=== PATIENT | male | born 1940 | race Hispanic/Latino ===

== ENCOUNTER 2022-06-07 05:32 | Emergency (ER) | payer MEDICARE ==
[~2022-06-07] VITALS: Ht 165.1 cm; Wt 60.4 kg
[2022-06-07 06:01] LABS: BASOPHILS % (AUTO) 0.5 % (0.0-5.0); EOSINOPHILS % (AUTO) 0.9 % (0.0-8.0); HEMATOCRIT 43.5 % (42-54); LYMPHOCYTES % (AUTO) 16.2 % (21.0-51.0); MEAN CORPUSCULAR HEMOGLOBIN 29.5 pg (27.0-33.0); MEAN CORPUSCULAR HGB CONC 33.8 g/dL (32.0-36.0); MEAN CORPUSCULAR VOLUME 87.2 fL (79-99); MONOCYTES % (AUTO) 3.6 % (3.0-13.0); NEUTROPHILS % (AUTO) 78.4 % (40.0-77.0); PLATELET COUNT (AUTO) 230 K/uL (130-400); RED BLOOD CELL COUNT(AUTO) 4.99 MIL/uL (4.50-6.20); RED CELL DISTRIBUTION WIDTH 13.5 % (11.0-15.5); WHITE BLOOD COUNT (AUTO) 9.1 K/uL (4.8-10.8)
[2022-06-07 06:08] VITALS: BP 163/87
[2022-06-07 06:20] LABS: POTASSIUM 3.9 mmol/L (3.5-5.1)
[2022-06-07 06:38] LABS: APPEARANCE,URINE CLEAR (CLEAR); BILIRUBIN,URINE NEGATIVE (NEGATIVE); GLUCOSE, URINE (UA) NEGATIVE (NEGATIVE); KETONES,URINE NEGATIVE (NEGATIVE); LEUKOCYTE ESTERASE ,URINE NEGATIVE Leu/uL (NEGATIVE); NITRATE,URINE NEGATIVE (NEGATIVE); OCCULT BLOOD,URINE NEGATIVE (NEGATIVE); PH,URINE 6.5 (5.0-8.0); PROTEIN,URINE NEGATIVE (NEGATIVE); UROBILINOGEN,URINE 0.2 mg/dL (0.2-1.0)
[2022-06-07 06:39] LABS: COLOR,URINE LIGHT-YELLOW (YELLOW)
== END 2022-06-07 07:05 | disposition home or self-care (01) ==
LOC: EDH 05:32
DX: R33.9 Retention of urine, unspecified (principal)
CPT/HCPCS: 36415; 51702; 80048; 81003; 85025

== ENCOUNTER 2023-02-04 14:32 | Emergency (ER) | payer MEDICARE, OTHER ==
[~2023-02-04] VITALS: Ht 167.6 cm; Wt 56.7 kg
[2023-02-04 14:35] VITALS: BP 128/80
== END 2023-02-04 19:46 | disposition home or self-care (01) ==
LOC: EDH 14:32
DX: S50.01XA Contusion of right elbow, initial encounter (principal); S60.221A Contusion of right hand, initial encounter; W18.39XA Other fall on same level, initial encounter; Y93.89 Activity, other specified; Y92.89 Other specified places as the place of occurrence of the external cause; Y99.8 Other external cause status
CPT/HCPCS: 73080; 73130

== ENCOUNTER 2025-02-13 14:51 | Inpatient (IN) | payer MEDICARE, OTHER ==
[~2025-02-13] VITALS: Ht 165.1 cm; Wt 54.7 kg
[2025-02-13 15:16] LABS: IMMATURE GRANULOCYTE ABSOLUTE 0.01 K/uL (0-1); NUCLEATED RED BLOOD CELLS 0.0 % (0.0-0.19); PLATELET COUNT (AUTO) 190 K/uL (130-400); RED BLOOD CELL COUNT(AUTO) 4.77 MIL/uL (4.50-6.20); RED CELL DISTRIBUTION WIDTH 14.0 % (11.0-15.5); WHITE BLOOD COUNT (AUTO) 6.8 K/uL (4.8-10.8)
[2025-02-13 15:25] LABS: CREATININE 0.9 mg/dL (0.5-1.3); GLOMERULAR FILTR. RATE CALC 85.0 mL/min (>90); GLUCOSE,RANDOM 142.0 mg/dL (70-105); SODIUM SERUM 140.0 mmol/L (136-145); UREA NITROGEN, BLOOD 21.0 mg/dL (7-18)
[2025-02-13 15:34] LABS: CREATINE KINASE, TOTAL 121.0 U/L (21-232)
--- NOTE | 2025-02-13 15:53 | HMCIMG ---
EXAM: CR Chest, 1 View. CLINICAL HISTORY: CHEST PAIN COMPARISON: None provided. FINDINGS: LUNGS: There is no mass, infiltrate, or acute pulmonary abnormality. PLEURAL SPACES: No pleural effusion or pneumothorax. MEDIASTINUM: The cardiomediastinal silhouette is within normal limits. BONES: No acute osseous abnormality. IMPRESSION: No acute cardiopulmonary pathology is evident. /[place]
--- NOTE | 2025-02-13 16:46 | ERN ---
General Chief Complaint: Chest Pain Stated Complaint: CHEST PAIN Time Seen by MD: 15:45 History of Present Illness Initial Comments 84-year-old male came in for chest pain. Patient otherwise has no concerns. Allergies: Coded Allergies: No Known Drug Allergies (Unverified Allergy, Unknown, 06/07/22) Past Medical History Past Medical History: UTI, Other Medical History Other: BPH Past Surgical History: None Social History Social History: Other ROS Dictation CONSTITUTIONAL: No chills, no fever, no weakness, no diaphoresis, no malaise. HEAD/FACE: No signs of trauma. EENT: No eye pain, no blurred vision, no tearing, no double vision, no ear pain, no ear discharge, no nose pain, no nasal congestion, no throat pain, no throat swelling, no mouth pain. RESPIRATORY: No cough, no orthopnea, no SOB, no stridor, no wheezing. CARDIOVASCULAR: No chest pain, no edema, no palpitations, no syncope. GASTROINTESTINAL/ABDOMINAL: No abdominal pain, no constipation, no diarrhea, no nausea, no vomiting. GENITOURINARY: No abnormal discharge, no dysuria, no frequent urination, no hematuria. No complaints of pain in the genitals. MUSCULOSKELETAL: No back pain, no gout, no joint pain, no joint swelling, no muscle pain, no muscle stiffness, no neck pain. INTEGUMENTARY: No change in color, no change in hair/nails, no dryness, no lesion, no lumps, no rash. NEUROLOGICAL/PSYCH: No anxiety, not depressed, no emotional problem, no headache, no numbness, no pre-existing deficit, no history of seizures, no t remors, no weakness. HEMATOLOGIC/LYMPHATIC: Not anemic, no history of blood clots, no apparent bleeding, no bruising, glands not swollen. All Systems Negative, Except as Noted. Physical Exam Physical Exam Dictation VITAL SIGNS: Reviewed. GENERAL APPEARANCE: Alert, oriented x3, no acute distress, obese. HEAD AND FACE: Non-traumatic. EYES: PERRL, pink conjunctivas, eyelid no trauma, anterior chamber clear. EARS: Pinnas intact and no signs of trauma or erythema. Ear canals clear and no discharge. TMs no erythema. NOSE: No discharge, no bleeding. OROPHARYNX: Mouth normal, teeth no caries, tongue pink. Pharynx clear, no erythema. Tonsils no exudates, no abscesses noted. Mucous membrane moist. NECK: Supple, non-tender, no thyromegaly, no masses, no JVD, no bruits. BREAST: Deferred. CHEST: No tenderness, no crepitus, no paradoxical movement, no retractions. LUNGS: Clear, well-ventilated, symmetric, no rales, no wheezing, no rhonchi, no stridor, good breath sounds bilaterally. HEART: Regular rate, regular rhythm, no murmur, no gallops. VASCULAR: No peripheral edema. ABDOMEN: Soft, positive bowel sounds, nondistended, no guarding, nontender, no rebound, no masses no hepatomegaly, no splenomegaly, no Mcarthur's sign, no hernias. RECTAL: Deferred. GENITAL: Deferred. NEUROLOGICAL: Normal speech, gross motor function intact, gross sensory function intact. MUSCULOSKELETAL: Neck nontender, full range of motion, back nontender, full range of motion. EXTREMITIES: Nontender, full range of motion. SKIN: Color pink, dry, no turgor, no rash, no lacerations, no abrasions, no contusions. LYMPHATICS: Deferred. Results Laboratory and Microbiology Lab and Micro Result Laboratory Tests Test 02/13/25 15:09 White Blood Count 6.8 K/uL (4.8-10.8) Red Blood Count 4.77 MIL/uL (4.50-6.20) Hemoglobin 13.9 g/dL (14.0-18.0) L Hematocrit 42.3 % (42-54) Mean Corpuscular Volume 88.7 fL (79-99) Mean Corpuscular Hemoglobin 29.1 pg (27.0-33.0) Mean Corpuscular Hemoglobin Concent 32.9 g/dL (32.0-36.0) Red Cell Distribution Width 14.0 % (11.0-15.5) Platelet Count 190 K/uL (130-400) Mean Platelet Volume 9.7 fL (7.5-10.5) Immature Granulocyte % (Auto) 0.1 % (0-1) Neutrophils (%) (Auto) 66.5 % (40.0-77.0) Lymphocytes (%) (Auto) 23.7 % (21.0-51.0) Monocytes (%) (Auto) 4.4 % (3.0-13.0) Eosinophils (%) (Auto) 5.2 % (0.0-8.0) Basophils (%) (Auto) 0.1 % (0.0-5.0) Neutrophils # (Auto) 4.5 K/uL (1.8-7.7) Lymphocytes # (Auto) 1.6 K/uL (1.0-4.8) Monocytes # (Auto) 0.3 K/uL (0.1-1.0) Eosinophils # (Auto) 0.35 K/uL (0.00-0.70) Basophils # (Auto) 0.01 K/uL (0.00-0.20) Absolute Immature Granulocyte (auto 0.01 K/uL (0-1) Nucleated Red Blood Cells 0.0 % (0.0-0.19) Sodium Level 140 mmol/L (136-145) Potassium Level 3.7 mmol/L (3.5-5.1) Chloride Level 105 mmol/L (101-111) Carbon Dioxide Level 26 mmol/L (21-32) Blood Urea Nitrogen 21 mg/dL (7-18) H Creatinine 0.9 mg/dL (0.5-1.3) Glomerular Filtration Rate Calc 85 mL/min (>90) Random Glucose 142 mg/dL (70-105) H Total Calcium 8.9 mg/dL (8.5-10.1) Total Creatine Kinase 121 U/L (21-232) Troponin I High Sensitivity 4 ng/L (4-75) MDM MDM: Differential diagnosis: Rationale: Tests considered and ordered secondary to shared decision making include: labs, ECG and radiology Previous outside records reviewed: Old ER visits. Risk of complication and/or morbidity or mortality of patient management: None Medications-Per medication reconciliation Need for hospitalization: Patient does meet criteria for hospitalization. Need for emergency major/minor surgery: No There are no social concerns with this patient. Prescription drug management Prescriptions will include symptomatic care Patient's prior external medical records from other ER visits were reviewed by me as indicated. Prior testing and results from previous visits were reviewed. Prior tests were taken into account with medical decision making and resource utilization, independent historian/historians were used to obtain complete medical history. I independently interpreted the test that were performed, results were reviewed by me and considered findings on radiology if ordered. Medical management and examination interpretation discussions were had by me with other qualified healthcare professionals as indicated for the patient's care. ED Course Orders Procedure Category Date Status Time Vital Signs Per CPOE 02/13/25 Transmitted Routine 15:02 Chest 1vw RAD 02/13/25 Resulted 15:02 12 Lead Ekg Tracing- EKG 02/13/25 Logged Technical 15:02 Oxygen By Nc/Pulse Ox CPOE 02/13/25 Transmitted 15:02 Maintain Iv CPOE 02/13/25 Transmitted 15:02 Iv Insertion CPOE 02/13/25 Transmitted 15:02 Cardiac Monitoring CPOE 02/13/25 Transmitted 15:02 Pulse Oximetry With CPOE 02/13/25 Transmitted Vs And Prn 15:02 Cbc With Differential LAB 02/13/25 Complete 15:02 Activity: Br W/Brp CPOE 02/13/25 Transmitted With Assist 15:02 Creatine Kinase, Total LAB 02/13/25 Complete 15:02 Troponin I High LAB 02/13/25 Complete Sensitivity 15:02 Urinalysis Profile LAB 02/13/25 Logged 15:02 Basic Metabolic Panel LAB 02/13/25 Complete 15:02 Vital Signs Date Time Temp Pulse Resp B/P (MAP) Pulse Ox O2 Delivery O2 Flow Rate FiO2 02/13/25 16:22 99.0 71 18 156/69 95 Room Air* 0 21 02/13/25 15:00 97.5 81 16 135/68 95 Room Air 0 DX & DISP Disposition: Inpatient Departure Impression: Primary Impression: Chest pain Condition: Stable Referrals: SELF,REFERRAL (PCP) ELLI HUMPHREY MD Feb 13, 2025 16:46
--- NOTE | 2025-02-13 16:55 | EKG ---
[facility] Test Date: 2025-02-13 Test Time: 14:55:27 Pat Name: PETER HWANG Department: ED Room: 303 Gender: M Ecdis N Navigation Operator: [id number] : 1940 Requested By: ELLI HUMPHREY Order Number: [id number] Reading MD: Rogelio Jaquez Measurements Intervals [place] Rate: 75 P: 51 TN: 228 QRS: 25 QRSD: 102 T: 69 QT: 403 QTc: 451 Interpretive Statements Sinus rhythm Prolonged TN interval Anterolateral infarct, age indeterminate Abnormal T, probable ischemia, lateral leads No previous ECG available for comparison Electronically Signed On 02-14-2025 15:35:05 CDT by Rogelio Jaquez Please click the below link to view image of tracing.
[2025-02-13] MEDS ORDERED: PoTASSium chloRIDE 20MEQ ER 20 MEQ ERTAB PO PRN (17:00)
[2025-02-13] MEDS ORDERED: NITROGLYCERIN 0.4 MG SL TAB SL PRN (17:00)
[2025-02-13] MEDS ORDERED: MAGNESIUM 2GM PREMIX 50ML 50 ML IV PRN (17:00)
--- NOTE | 2025-02-13 17:20 | HP ---
[facility] HISTORY AND PHYSICAL Date of Service: Feb 13, 2025 Time of Service: 16:40 HISTORY OF PRESENT ILLNESS: [ ] admission date: 02/13/25 PCP: self referral chief complaint: chest pain Primary Repairer Cylinder Heads: DR Resendiz This is a 84year old male presents in ER with chief complaints of chest pain. Onset today after lunch. Location midsternal described as pressure. Pain did not radiate. State 8/10 . Duration lasted for a few hours. Associated symptoms none denies GI symptoms, dizziness, palpitation, shortness for breath, no reports of lower extremity edema. Patient is has a history of dementia spouse at bedside. She said he was also working in the garage doing very minimal exertion. Patient reports no chest pain events the past few days. Patient has a significant medical history of BPH and dementia. ER workup troponin was negative. Given that patient has dull chest pain with minimal exertion patient will be admitted rule out ACS. REVIEW OF SYSTEMS A14 point ROS was obtained all relevant positive documented otherwise ROS negative PAST MEDICAL HISTORY: [ ] Refer to HPI PAST SURGICAL HISTORY: [ ] None PAST SOCIAL HISTORY: [ ] Denies smoking tobacco products and alcohol use lives with spouse FAMILY HISTORY: [ ] Noncontributory Coded Allergies: No Known Drug Allergies (Unverified Allergy, Unknown, 06/07/22) PHYSICAL EXAM GENERAL APPEARANCE: The patient is awake, alert, and oriented, in no acute cardiopulmonary distress. NEUROLOGICAL: Cranial nerves II-XII grossly intact. Motor is 5/5 in bilateral upper and lower extremities proximal to distal. No sensory deficits. HEENT: Face is symmetric. Pupils are equal and reactive. Extraocular movements are intact. NECK: Supple. No JVD. No thyromegaly. No submental, submandibular, pre- /postauricular, occipital or supraclavicular lymphadenopathy. CHEST: Normal chest expansion. No Telemetry. LUNGS: Absence of any rales, rhonchi or any wheezing. CARDIOVASCULAR: Regular. S1 and S2 normal. No appreciable rubs, murmurs or gallops. ABDOMEN: Soft, nontender, and nondistended. There is no rebound, voluntary guarding, or rigidity. : Deferred. No Henry. EXTREMITIES: Non-edematous and not cyanotic. No clubbing. Good capillary refill. SKIN: No skin breakdown. Vital Sign (Last 24 Hours) 02/13/25 16:22 Temp 99.0 Pulse 71 Resp 18 B/P (MAP) 156/69 Pulse Ox 95 O2 Delivery Room Air* O2 Flow Rate 0 FiO2 21 LABS: Laboratory: Test 02/13/25 15:09 Range/Units White Blood Count 6.8 4.8-10.8 K/uL Red Blood Count 4.77 4.50-6.20 MIL/uL Hemoglobin 13.9 L 14.0-18.0 g/dL Hematocrit 42.3 42-54 % Mean Corpuscular Volume 88.7 79-99 fL Mean Corpuscular Hemoglobin 29.1 27.0-33.0 pg Mean Corpuscular Hemoglobin Concent 32.9 32.0-36.0 g/dL Red Cell Distribution Width 14.0 11.0-15.5 % Platelet Count 190 130-400 K/uL Mean Platelet Volume 9.7 7.5-10.5 fL Immature Granulocyte % (Auto) 0.1 0-1 % Neutrophils (%) (Auto) 66.5 40.0-77.0 % Lymphocytes (%) (Auto) 23.7 21.0-51.0 % Monocytes (%) (Auto) 4.4 3.0-13.0 % Eosinophils (%) (Auto) 5.2 0.0-8.0 % Basophils (%) (Auto) 0.1 0.0-5.0 % Neutrophils # (Auto) 4.5 1.8-7.7 K/uL Lymphocytes # (Auto) 1.6 1.0-4.8 K/uL Monocytes # (Auto) 0.3 0.1-1.0 K/uL Eosinophils # (Auto) 0.35 0.00-0.70 K/uL Basophils # (Auto) 0.01 0.00-0.20 K/uL Absolute Immature Granulocyte (auto 0.01 0-1 K/uL Nucleated Red Blood Cells 0.0 0.0-0.19 % Sodium Level 140 136-145 mmol/L Potassium Level 3.7 3.5-5.1 mmol/L Chloride Level 105 101-111 mmol/L Carbon Dioxide Level 26 21-32 mmol/L Blood Urea Nitrogen 21 H 7-18 mg/dL Creatinine 0.9 0.5-1.3 mg/dL Glomerular Filtration Rate Calc 85 >90 mL/min Random Glucose 142 H 70-105 mg/dL Total Calcium 8.9 8.5-10.1 mg/dL Total Creatine Kinase 121 21-232 U/L Troponin I High Sensitivity 4 4-75 ng/L DIAGNOSTICS / RADIOLOGY: [ ] ASSESSMENT: Atypical chest pain rule out ACS hyperglycemia POA Chronic problems BPH and dementia PLAN: [ ] Admit: Medical-surgical with tele condition: Guarded Status: Full code IVF: Consultants continuous improvement coordinator's medications Full dose aspirin now then 81 mg po daily, atorvastatin 20 mg po hs Nitroglycerin 0.4 Sublingual as directed for chest pain Test: Echo to evaluate LV function Labs cbc, cmp, mag+ tsh, lipid panel Replace electrolytes as needed as per protocol to keep potassium above 4.0 magnesium 2.0. Home medications pending to be reviewed by RN nurse. PRN: MEDICATIONS Tylenol 650 mg po every 4 hrs for fever zofran 4 mg IV every 6 hrs for n/v Hydralazine 5 mg IV every 4 hrs systolic pressure > 160 bowel regiment: lactulose 20 gm PO BID PRN constipation DVT ppx, GI ppx all questions answered time spent: > 35 min Supervising MD: Dr. Edmondson c/d This document was generated in part using voice recognition software, occasional wrong word or sound alike substitutions may have occurred due to the inherent limitations of voice recognition software. Read the chart carefully and recognize using context, where the substitutions have occurred. Although every effort was made to edit the content, game advisor and typing errors may occur ADVANCED CARE PLANNING 1. Which of the following were discussed? Hospice Care - Yes / No Therapeutic options - Yes / No Advance Directives - Yes / No Other discussions - 2. Discussed with who? 3. Voluntary nature of this service was explained to the patient? Yes / No 4. Amount of time spent - 5. Reviewed by Physician? (if this service was performed by NPP) Yes / No ATTESTATION BY PHYSICIAN I have seen and examined the patient. I reviewed the documentation, medical decision making, and treatment plan as noted by the mid-level provider above. I agree with the findings and plan of care. ELMER EDMONDSON MD, ELIZABETH NP Feb 13, 2025 17:20
--- NOTE | 2025-02-13 17:50 | NUR ---
DR CARLSON PAGED FOR CARDIO CONSULT. WILL BE SEEING PT IN AM.
[2025-02-13] MEDS: ASPIRIN 325MG TAB PO ONE (18:12)
[2025-02-13 20:41] LABS: APPEARANCE,URINE CLEAR (CLEAR); GLUCOSE, URINE (UA) NEGATIVE (NEGATIVE); LEUKOCYTE ESTERASE ,URINE NEGATIVE Leu/uL (NEGATIVE); NITRATE,URINE NEGATIVE (NEGATIVE); OCCULT BLOOD,URINE NEGATIVE (NEGATIVE)
[2025-02-13 20:42] LABS: ADD UA MICROSCOPIC YES
--- NOTE | 2025-02-14 00:25 | NUR ---
REPORT GIVEN TO CANDICE FOURNIER.
[2025-02-14 01:10] VITALS: BP 166/85; PULSE 62; RESP 18; TEMP 97.5
[2025-02-14 04:00] VITALS: BP 132/52; PULSE 59; RESP 18; TEMP 97.9
[2025-02-14] MEDS ORDERED: DONE5TAB33 PO (04:25)
[2025-02-14] MEDS ORDERED: ATOR20TA65 PO (04:25)
[2025-02-14] MEDS ORDERED: TAMS-55 PO (04:25)
[2025-02-14 04:29] LABS: IMMATURE GRANULOCYTE ABSOLUTE 0.01 K/uL (0-1); NUCLEATED RED BLOOD CELLS 0.0 % (0.0-0.19); PLATELET COUNT (AUTO) 176 K/uL (130-400); RED BLOOD CELL COUNT(AUTO) 4.53 MIL/uL (4.50-6.20); RED CELL DISTRIBUTION WIDTH 13.8 % (11.0-15.5); WHITE BLOOD COUNT (AUTO) 5.1 K/uL (4.8-10.8)
[2025-02-14 04:52] LABS: ASPARTATE AMINOTRANSFERASE 37.0 U/L (10-37); CREATININE 0.6 mg/dL (0.5-1.3); GLOMERULAR FILTR. RATE CALC 96.0 mL/min (>90); GLUCOSE,RANDOM 92.0 mg/dL (70-105); SODIUM SERUM 142.0 mmol/L (136-145); TOTAL PROTEIN, SERUM 6.7 g/dL (6.0-8.3); UREA NITROGEN, BLOOD 21.0 mg/dL (7-18)
[2025-02-14 08:00] VITALS: BP 131/70; PULSE 67; RESP 17; TEMP 98.9; O2SAT 91
[2025-02-14 08:29] LABS: LDL DIRECT 118 mg/dL (0-99)
[2025-02-14] MEDS: ASPIRIN 81 MG EC TAB PO SCH (08:41)
[2025-02-14] MEDS: PoTASSium chl 10% ELIXIR 20MEQ 20 MEQ/15 ML UDCUP PO PRN (08:47)
--- NOTE | 2025-02-14 09:25 | NUR ---
DCP: HOME Pt lives with his Deborah Prieto [phone]. Pt does not have any insecurities with food, assisted, and/or utilities. Pt does use a cane at home to ambulate. Pt does not have provider or home health services. Pt is able to complete ADLs independently. Pt has a PCP of Dr. Borrero and Dr. Whitfield at the [facility]. Pt uses [facility] in [place] for any RX needs. At [place] pt will go home and family can assist with transportation. Addendum: 02/14/25 at 0928 by DELIA COLÓN SS Amended: Links added.
--- NOTE | 2025-02-14 10:22 | PN ---
[facility] PROGRESS NOTE Date of Service: Feb 14, 2025 Time of Service: 10:22 SUBJECTIVE: 02/14/2025: The patient was evaluated at the bedside in the presence of his . He appeared comfortable and reported no current chest pain or shortness of breath. His provided additional history, noting that he may be a poor historian and was unable to fully describe his symptoms. Per collateral history, symptoms began yesterday after lunch, when the patient describes the sensation as if he "did not have a heart" accompanied by discomfort on the left side of the chest. The duration of pain is unknown, however he had no chest pain in the emergency department. The was concerned given his age, she decided to go to ER for further evaluation. He denies any history of coronary artery disease, myocardial infarction, or cerebrovascular events. At present, he remains asymptomatic, without dyspnea, chest pain, or peripheral edema. He is currently hemodynamically stable, blood pressure 132/52, pulse rates 59 and breathing on room air. Serial troponin have been negative CBC and BMP are unremarkable. D-dimer is elevated to 780. Echocardiogram is pending. Plan is to obtain CT chest to rule out PE. Cardiology consult is pending. Further assessment and plan as discussed below. REVIEW OF SYSTEMS A14 point ROS was obtained all relevant positive documented otherwise ROS negative PHYSICAL EXAM GENERAL APPEARANCE: The patient is awake, alert, and oriented, in no acute cardiopulmonary distress. NEUROLOGICAL: Cranial nerves II-XII grossly intact. Motor is 5/5 in bilateral upper and lower extremities proximal to distal. No sensory deficits. HEENT: Face is symmetric. Pupils are equal and reactive. Extraocular movements are intact. NECK: Supple. No JVD. No thyromegaly. No submental, submandibular, pre-/postau ricular, occipital or supraclavicular lymphadenopathy. CHEST: Normal chest expansion. No Telemetry. LUNGS: Absence of any rales, rhonchi or any wheezing. CARDIOVASCULAR: Regular. S1 and S2 normal. No appreciable rubs, murmurs or gallops. ABDOMEN: Soft, nontender, and nondistended. There is no rebound, voluntary guarding, or rigidity. : Deferred. No Henry. EXTREMITIES: Non-edematous and not cyanotic. No clubbing. Good capillary refill. SKIN: No skin breakdown. Vital Signs (last 8hr) Date Time Temp Pulse Resp B/P (MAP) Pulse Ox O2 Delivery O2 Flow Rate FiO2 02/14/25 08:00 99.0 67 17 131/70 91 Room Air 02/14/25 04:00 97.9 59 18 132/52 96 Room Air LABS: Laboratory: Test 02/14/25 09:09 02/14/25 05:28 02/14/25 04:20 02/13/25 20:32 Range/Units D-Dimer Quantitative (PE/DVT) 708 *H 0-500 ng/mL Whole Blood Glucose 88 70-110 MG/DL White Blood Count 5.1 4.8-10.8 K/uL Red Blood Count 4.53 4.50-6.20 MIL/uL Hemoglobin 13.4 L 14.0-18.0 g/dL Hematocrit 40.1 L 42-54 % Mean Corpuscular Volume 88.5 79-99 fL Mean Corpuscular Hemoglobin 29.6 27.0-33.0 pg Mean Corpuscular Hemoglobin Concent 33.4 32.0-36.0 g/dL Red Cell Distribution Width 13.8 11.0-15.5 % Platelet Count 176 130-400 K/uL Mean Platelet Volume 9.5 7.5-10.5 fL Immature Granulocyte % (Auto) 0.2 0-1 % Neutrophils (%) (Auto) 56.3 40.0-77.0 % Lymphocytes (%) (Auto) 31.1 21.0-51.0 % Monocytes (%) (Auto) 6.5 3.0-13.0 % Eosinophils (%) (Auto) 5.7 0.0-8.0 % Basophils (%) (Auto) 0.2 0.0-5.0 % Neutrophils # (Auto) 2.9 1.8-7.7 K/uL Lymphocytes # (Auto) 1.6 1.0-4.8 K/uL Monocytes # (Auto) 0.3 0.1-1.0 K/uL Eosinophils # (Auto) 0.29 0.00-0.70 K/uL Basophils # (Auto) 0.01 0.00-0.20 K/uL Absolute Immature Granulocyte (auto 0.01 0-1 K/uL Nucleated Red Blood Cells 0.0 0.0-0.19 % Sodium Level 142 136-145 mmol/L Potassium Level 3.7 3.5-5.1 mmol/L Chloride Level 108 101-111 mmol/L Carbon Dioxide Level 24 21-32 mmol/L Blood Urea Nitrogen 21 H 7-18 mg/dL Creatinine 0.6 0.5-1.3 mg/dL Glomerular Filtration Rate Calc 96 >90 mL/min Random Glucose 92 70-105 mg/dL Total Calcium 8.8 8.5-10.1 mg/dL Magnesium Level 2.20 1.80-2.40 mg/dL Total Bilirubin 0.4 0.2-1.0 mg/dL Aspartate Amino Transf (AST/SGOT) 37 10-37 U/L Alanine Aminotransferase (ALT/SGPT) 50 12-78 U/L Alkaline Phosphatase 88 50-136 U/L Troponin I High Sensitivity 7 4-75 ng/L Total Protein 6.7 6.0-8.3 g/dL Albumin 3.4 L 3.5-5.0 g/dL Triglycerides Level 61 30-200 mg/dL Cholesterol Level 187 <200 mg/dL LDL Cholesterol 118 H 0-99 mg/dL HDL Cholesterol 52 29-71 mg/dL Urine Color COLORLESS YELLOW Urine Appearance CLEAR CLEAR Urine pH 6.5 5.0-8.0 Urine Specific [place] 1.000 1.001-1.031 Urine Protein NEGATIVE NEGATIVE mg/dL Urine Glucose (UA) NEGATIVE NEGATIVE mg/dL Urine Ketones NEGATIVE NEGATIVE mg/dL Urine Occult Blood NEGATIVE NEGATIVE Urine Nitrate NEGATIVE NEGATIVE Urine Bilirubin NEGATIVE NEGATIVE mg/dL Urine Urobilinogen 0.2 0.2-1.0 mg/dL Urine Leukocyte Esterase NEGATIVE NEGATIVE Yanni/uL Urine RBC 0-1 0-1 /HPF Urine WBC 0-1 0-1 /HPF Urine Bacteria None None Seen /HPF Test 02/13/25 15:09 Range/Units Total Creatine Kinase 121 21-232 U/L B-Type Natriuretic Peptide 36 0-100 pg/mL Current Medications Medications (Trade) Dose Ordered Sig/Osman Route PRN Reason Start Time Stop Time Status Last Admin Dose Admin Acetaminophen (TYLenol 325MG TAB) 650 mg Q4H PRN PO TEMPERATURE GREATER THAN 101.5 02/13/25 17:00 03/15/25 16:59 Aspirin (Aspirin 81mg Ec Tab) 81 mg DAILY PO 02/14/25 09:00 03/16/25 08:59 02/14/25 08:41 81 MG Atorvastatin Calcium (LIPItor 20MG) 20 mg HS PO 02/13/25 21:00 03/15/25 20:59 02/13/25 20:53 20 MG Donepezil HCl (ARIcept 5MG TAB) 5 mg DAILY PO 02/14/25 09:00 03/16/25 08:59 02/14/25 08:41 5 MG Hydralazine HCl (APRESOLine 20MG INJ) 5 mg Q4H PRN IV ADMINISTER FOR SBP > 160 02/13/25 17:00 03/15/25 16:59 Insulin Human Regular (humuLIN R 100 UNIT/ML 3ML) INSULIN SLIDING SCAL... ACHS SQ 02/13/25 21:00 03/15/25 20:59 Magnesium Sulfate 50 ml @ 0 mls/hr PROTOCOL PRN IV low mag level 02/13/25 17:00 03/15/25 16:59 Nitroglycerin (Nitrostat) 0.4 mg AD PRN SL CHEST PAIN 02/13/25 17:00 03/15/25 16:59 Pantoprazole Sodium (PROTonix 40MG INJ) 40 mg DAILY IVP 02/14/25 09:00 03/16/25 08:59 02/14/25 08:41 40 MG Potassium Chloride 100 ml @ 100 mls/hr AD PRN IV POTASSIUM PROTOCOL 02/13/25 17:00 03/15/25 16:59 Potassium Chloride (K-Dur/Klor-Con 20meq) 20 meq AD PRN PO POTASSIUM PROTOCOL 02/13/25 17:00 03/15/25 16:59 Potassium Chloride (KCl 10% Elixir 20meq/15ml) 20 meq AD PRN PO POTASSIUM PROTOCOL 02/13/25 17:00 03/15/25 16:59 02/14/25 08:47 20 MEQ Tamsulosin HCl (FloMAX) 0.4 mg HS PO 02/13/25 21:00 03/15/25 20:59 02/13/25 20:53 0.4 MG DIAGNOSTICS / RADIOLOGY: [place] [id number] [address] IMAGING REPORT Signed PATIENT: PETER HWANG MR#: [id number] : 1940 SEX: M AGE: 84 LOCATION: [facility] ORDER 02 STATUS: REG ER REPORT#: [id number] SERVICE 01 REASON: CHEST PAIN ORDERING PHYSICIAN: ELLI HUMPHREY MD PROCEDURE: CXR1VW - CHEST 1VW EXAM: CR Chest, 1 View. CLINICAL HISTORY: CHEST PAIN COMPARISON: None provided. FINDINGS: LUNGS: There is no mass, infiltrate, or acute pulmonary abnormality. PLEURAL SPACES: No pleural effusion or pneumothorax. MEDIASTINUM: The cardiomediastinal silhouette is within normal limits. BONES: No acute osseous abnormality. IMPRESSION: No acute cardiopulmonary pathology is evident. /Tate DICTATED BY: SULLY PEÑA MD DATE: 02/13/251650 ELECTRONICALLY SIGNED BY: SULLY PEÑA MD DATE: 02/13/251650 ASSESSMENT: Atypical chest pain rule out ACS Elevated D-dimer, CT PE pending hyperglycemia POA Hypoalbuminemia POA Benign prostatic hyperplasia Dementia PLAN: The patient remains admitted on the medical surgical floor. Atypical chest pain rule out ACS * The patient is currently pain-free, serial troponin are negative 4-5-7 * Echocardiogram is pending, follow up when the results are available. * Continue with aspirin 81 mg. * Continue with the atorvastatin 20 mg daily. * Continue with 0.4 mg nitroglycerin as needed for chest pain. * Lipid panel: Triglycerides 61, cholesterol 187, LDL 118, HDL 52 * Cardiology consult is pending. Follow up with the recommendations are available. Elevated D-dimer, CT PE pending * D-dimer level is 780. Pretest probability of PE is very low with Wells score 0. * We will order CT PE per protocol given elevated D-dimer to rule out PE. Hyperglycemia POA * No known history of diabetes. Recent blood sugar level is 88. * Continue on sliding scale insulin. * Hypoglycemia protocol DVT prophylaxis: Heparin 5000 IU q.12h. GI prophylaxis: Famotidine 20 mg p.o. q.12h Replace electrolytes as needed. Discontinue p.r.n. IV antihypertensives. Home medications were reconciled and continued. P.r.n. medication for fever, nausea, constipation Replace electrolytes as needed as per protocol to keep potassium above 4.0 magnesium 2.0. A.m. labs: CBC, BMP Further orders per hospitalization course. ATTESTATION BY PHYSICIAN I have seen and examined the patient. I reviewed the documentation, medical decision making, and treatment plan as noted by the resident provider above. I agree with the findings and plan of care. Reginaldo Marin MD, MANALI MD Feb 14, 2025 10:22
[2025-02-14 12:00] VITALS: BP 111/52; PULSE 62; RESP 17; TEMP 97.5
[2025-02-14] MEDS ORDERED: IOHEXOL-350 75 ML VIAL IV ONE (13:32)
[2025-02-14] MEDS ORDERED: GLUCAGON 1MG KIT 1 MG ML IM PRN (14:00)
[2025-02-14] MEDS ORDERED: DEXTROSE 50%-WATER 50 ML DISP.SYRIN IV PRN (14:00)
[2025-02-14] MEDS ORDERED: LACTULOSE 20 GM/30 ML UDCUP PO PRN (14:00)
--- NOTE | 2025-02-14 15:03 | HMCIMG ---
EXAM: CTA Chest with and without Intravenous Contrast for PE evaluation CLINICAL HISTORY: Elevated D-dimer, r/o PE TECHNIQUE: Axial CTA images of the chest with and without intravenous contrast using a pulmonary embolism protocol. Multiplanar reconstructed images were created and reviewed. CONTRAST: IV contrast was administered without incident. COMPARISON: None provided. FINDINGS: PULMONARY ARTERIES: Opacified pulmonary arteries are patent without evidence for pulmonary embolism. AORTA: There is no evidence for aneurysm or dissection of the thoracic aorta. LUNGS: Fibroatelectatic bands noted involving bilateral lower lobe. No suspicious pulmonary nodule or focal airspace disease. PLEURAL SPACES: Pleural plaque noted involving lateral basal segment of the right lower lobe and posterobasal segment of the left lower lobe. No pneumothorax evident. No pleural effusions. HEART: Normal heart size. No significant pericardial effusion. LYMPH NODES: No lymphadenopathy is evident. BONES: Moderate degenerative changes noted in the form of marginal osteophytes. Excessive thoracic kyphosis is noted No focal osseous abnormality or acute fracture. UPPER ABDOMEN: Approximately 12 x 10 mm left hepatic lobe cyst. Rest of the Images of the upper abdomen are unremarkable. IMPRESSION: 1. No evidence of pulmonary embolism or other acute cardiopulmonary findings. 2. Bilateral pleural plaques. /[place]
--- NOTE | 2025-02-14 15:19 | HMCSR ---
APPROVED REPORT EXAM: Two-dimensional and M-mode echocardiogram with Doppler and color Doppler. INDICATION ICD: Chest Pain 2D Dimensions RVDd4.3 cmLVEF(%)67.6 (>50%)LVED Vol(simp.)103.0 mL IVSd1.1 (0.7-1.1cm)FS(%)37 %LVES Vol(simp.)49.0 mL LVDd4.2 (3.8-5.6cm)LA (2D)3.5 (1.6-4.0cm)LVEF(%, simp.)53 % PWd0.9 (0.7-1.1cm)Ao Root(2D)3.6 (2.0-3.7cm)LA ESV INDEX (BP)26.91 mL/m2 LVDs2.6 (2.5-4.0cm)LVOT diam2.2 (1.8-2.4cm) IVC diam2.1 cm Deformation Strain Apical 4-17.2 % Apical 2-18.5 % Apical 3-15.8 % Global Strain-17.2 % M-Mode Dimensions EPSS0.8 cm LA (MM)5.2 (1.6-4.0cm) Ao Root(MM)2.6 (2.0-3.7cm) Aortic Valve AoV Vmax1.4 m/Alberto Peak GR7.6 mmHg AoV VTI0.3 mAo Mean GR3.5 mmHg Al P1/2T533 ms Mitral Valve MV E Vmax65.2 cm/sDECEL Rcuz332 ms MV A Vmax93.1 cm/sP 1/2 T58 ms E/A ratio0.7MVA (PHT)3.8 cm2 TDI E/E' Nogkjm83.5E/E' Lateral7.9 Medial E' Peak V4.51 cm/sLateral E' Peak V8.30 cm/s Tricuspid Valve TR Vmax1.9 m/sRAP (EST) 8 gnKfZHKB12.2 mmHg TR Peak GR15.2 mmHg Left Ventricle The left ventricle is normal size. GLS -17.0%. There is normal left ventricular wall thickness. The L VEF is 65%. 3D volume EF 59%. Stage I diastolic dysfunction. Right Ventricle The right ventricle is mildly dilated. The right ventricular systolic function is normal. Atria The left atrium size is normal. The right atrium size is normal. Aortic Valve There is aortic annular calcification. Mild aortic regurgitation is present. There is no aortic valvu lar stenosis. Mitral Valve There is mitral annular calcification. The mitral valve is mildly thickened. There is no mitral valve regurgitation noted. There is no mitral valve stenosis. Tricuspid Valve The tricuspid valve is normal in structure. There is mild tricuspid valve regurgitation noted. Pulmonic Valve The pulmonary valve is normal in structure. There is no pulmonic valvular regurgitation. Great Vessels The aortic root is normal in size. The IVC is normal in size and collapses <50% with inspiration. Pericardium There is no pericardial effusion. Other Information Quality : Adequate Conclusion The LVEF is 65%. 3D volume EF 59%. Stage I diastolic dysfunction. GLS -17.0%. Mild aortic regurgitation is present.
[2025-02-14 16:00] VITALS: BP 146/75; PULSE 60; RESP 17; TEMP 97.8
[2025-02-14] MEDS ORDERED: FAMOTIDINE 20MG VIAL IV SCH (21:00)
[2025-02-14] MEDS ORDERED: FAMOTIDINE 20MG TAB PO SCH (21:00)
--- NOTE | 2025-02-14 21:04 | DS ---
Discharge Summary Hospital Course Summary: The patient is an 84-year-old male who was admitted for evaluation of midsternal chest pain following lunch, rated 8/10 in intensity and lasting several hours on 02/13. Due to limited history provided by the patient, his served as the primary historian. He denied associated gastrointestinal symptoms, palpitations, dyspnea, or prior cardiovascular events. Initial emergency department workup, including serial troponins, was negative. He was admitted for further evaluation to rule out acute coronary syndrome (ACS). On the following day, he was assessed by the primary hospitalist team and found to be hemodynamically stable. A transthoracic echocardiogram was ordered along with a cardiology consultation. Given a D-dimer of 780, a CT pulmonary angiogram (PE protocol) was performed, which ruled out pulmonary embolism. The scan was notable for bilateral pleural plaques and a left hepatic lobe cyst, but no acute intrathoracic pathology. Echocardiogram findings revealed a left ventricular ejection fraction of 65%, stage I diastolic dysfunction, and mild aortic regurgitation. The cardiology consultation was still pending at the time. Later in the day, around 5:00 p.m., the patients reported that he was exhibiting signs of sundowning and expressed a strong preference to return home. After discussion of the potential risks, the patient elected to leave the hospital against medical advice (AMA) and signed the appropriate documentation on 02/14. The risks, benefits, and potential consequences of leaving the hospital against medical advice (AMA) were thoroughly discussed with the patient and his . These included, but were not limited to, worsening of the underlying condition, possible complications, delayed diagnosis or treatment, and potential need for re-hospitalization. The patient and his demonstrated understanding of the information provided and verbalized the decision to leave the hospital AMA. The patient was advised to return to the emergency department should symptoms worsen or new symptoms arise. Procedure(s): [place] [id number] [address] IMAGING REPORT Signed PATIENT: PETER HWANG MR#: [id number] : 1940 SEX: M AGE: 84 LOCATION: [facility] ORDER 1503 STATUS: REG REPORT#: [id number] SERVICE 1502 REASON: CHEST PAIN ORDERING PHYSICIAN: ELLI HUMPHREY MD PROCEDURE: CXR1VW - CHEST 1VW EXAM: CR Chest, 1 View. CLINICAL HISTORY: CHEST PAIN COMPARISON: None provided. FINDINGS: LUNGS: There is no mass, infiltrate, or acute pulmonary abnormality. PLEURAL SPACES: No pleural effusion or pneumothorax. MEDIASTINUM: The cardiomediastinal silhouette is within normal limits. BONES: No acute osseous abnormality. IMPRESSION: No acute cardiopulmonary pathology is evident. /[place] DICTATED BY: SULLY PEÑA MD DATE: 02/13/251650 ELECTRONICALLY SIGNED BY: SULLY PEÑA MD DATE: 02/13/251650 [address] [address] IMAGING REPORT Signed PATIENT: PETER HWANG MR#: [id number] : 1940 SEX: M AGE: 84 LOCATION: [facility] ORDER 1234 STATUS: ADM IN REPORT#: [id number] SERVICE 1234 REASON: Elevated D-dimer, r/o PE ORDERING PHYSICIAN: ERMA ALEXANDER MD PROCEDURE: CHES PE - CT CHEST PE PROTOCOL WWO CONT EXAM: CTA Chest with and without Intravenous Contrast for PE evaluation CLINICAL HISTORY: Elevated D-dimer, r/o PE TECHNIQUE: Axial CTA images of the chest with and without intravenous contrast using a pulmonary embolism protocol. Multiplanar reconstructed images were created and reviewed. CONTRAST: IV contrast was administered without incident. COMPARISON: None provided. FINDINGS: PULMONARY ARTERIES: Opacified pulmonary arteries are patent without evidence for pulmonary embolism. AORTA: There is no evidence for aneurysm or dissection of the thoracic aorta. LUNGS: Fibroatelectatic bands noted involving bilateral lower lobe. No suspicious pulmonary nodule or focal airspace disease. PLEURAL SPACES: Pleural plaque noted involving lateral basal segment of the right lower lobe and posterobasal segment of the left lower lobe. No pneumothorax evident. No pleural effusions. HEART: Normal heart size. No significant pericardial effusion. LYMPH NODES: No lymphadenopathy is evident. BONES: Moderate degenerative changes noted in the form of marginal osteophytes. Excessive thoracic kyphosis is noted No focal osseous abnormality or acute fracture. UPPER ABDOMEN: Approximately 12 x 10 mm left hepatic lobe cyst. Rest of the Images of the upper abdomen are unremarkable. IMPRESSION: 1. No evidence of pulmonary embolism or other acute cardiopulmonary findings. 2. Bilateral pleural plaques. /[place] DICTATED BY: KIYA OWENS Jr., MD DATE: 02/14/251601 ELECTRONICALLY SIGNED BY: KIYA OWNES Jr., MD DATE: 02/14/251601 [place] [address] IMAGING REPORT Signed PATIENT: PETER HWANG MR#: [id number] : 1940 SEX: M AGE: 84 LOCATION: [facility] ORDER 46 STATUS: ADM IN REPORT#: [id number] SERVICE 40 REASON: chest pain ORDERING PHYSICIAN: SANTOSH IBARRA NP PROCEDURE: ECHO CMP - ECHO 2-D COMPLETE APPROVED REPORT EXAM: Two-dimensional and M-mode echocardiogram with Doppler and color Doppler. INDICATION ICD: Chest Pain 2D Dimensions RVDd 4.3 cm LVEF(%) 67.6 (>50%) LVED Vol(simp.) 103.0 mL IVSd 1.1 (0.7-1.1cm) FS(%) 37 % LVES Vol(simp.) 49.0 mL LVDd 4.2 (3.8-5.6cm) LA (2D) 3.5 (1.6-4.0cm) LVEF(%, simp.) 53 % PWd 0.9 (0.7-1.1cm) Ao Root(2D) 3.6 (2.0-3.7cm) LA ESV INDEX (BP) 26.91 mL/m2 LVDs 2.6 (2.5-4.0cm) LVOT diam 2.2 (1.8-2.4cm) IVC diam 2.1 cm Deformation Strain Apical 4 -17.2 % Apical 2 -18.5 % Apical 3 -15.8 % Global Strain -17.2 % M-Mode Dimensions EPSS 0.8 cm LA (MM) 5.2 (1.6-4.0cm) Ao Root(MM) 2.6 (2.0-3.7cm) Aortic Valve AoV Vmax 1.4 m/s Ao Peak GR 7.6 mmHg AoV VTI 0.3 m Ao Mean GR 3.5 mmHg Al P1/2T 533 ms Mitral Valve MV E Vmax 65.2 cm/s DECEL Time 287 ms MV A Vmax 93.1 cm/s P 1/2 T 58 ms E/A ratio 0.7 MVA (PHT) 3.8 cm2 TDI E/E' Medial 14.5 E/E' Lateral 7.9 Medial E' Peak V 4.51 cm/s Lateral E' Peak V 8.30 cm/s Tricuspid Valve TR Vmax 1.9 m/s RAP (EST) 8 mmHg RVSP 23.2 mmHg TR Peak GR 15.2 mmHg Left Ventricle The left ventricle is normal size. GLS -17.0%. There is normal left ventricular wall thickness. The LVEF is 65%. 3D volume EF 59%. Stage I diastolic dysfunction. Right Ventricle The right ventricle is mildly dilated. The right ventricular systolic function is normal. Atria The left atrium size is normal. The right atrium size is normal. Aortic Valve There is aortic annular calcification. Mild aortic regurgitation is present. There is no aortic valvular stenosis. Mitral Valve There is mitral annular calcification. The mitral valve is mildly thickened. There is no mitral valve regurgitation noted. There is no mitral valve stenosis. Tricuspid Valve The tricuspid valve is normal in structure. There is mild tricuspid valve regurgitation noted. Pulmonic Valve The pulmonary valve is normal in structure. There is no pulmonic valvular regurgitation. Great Vessels The aortic root is normal in size. The IVC is normal in size and collapses <50% with inspiration. Pericardium There is no pericardial effusion. Other Information Quality : Adequate Conclusion The LVEF is 65%. 3D volume EF 59%. Stage I diastolic dysfunction. GLS -17.0%. Mild aortic regurgitation is present. DICTATED BY: BECKIE MADDOX MD DATE: 02/14/25 0949 ELECTRONICALLY SIGNED BY: BECKIE MADDOX MD DATE: 02/14/25 1519 Assessment/Plan: ASSESSMENT: Atypical chest pain, ACS has not been ruled out Elevated D-dimer, CT chest negative for PE hyperglycemia POA Hypoalbuminemia POA Benign prostatic hyperplasia Dementia Home Medications: Reported Medications Donepezil HCl (Donepezil HCl) 5 Mg Tablet, 1 TAB PO HS for 30 Days, #30 TAB 0 Refills 02/14/25 Tamsulosin HCl (Flomax) 0.4 Mg Cap.er.24h, 1 CAP PO HS for 30 Days, #30 CAP 0 Refills 02/14/25 Atorvastatin Calcium (Atorvastatin Calcium) 20 Mg Tablet, 1 TAB PO HS for 30 Days, #30 TAB 0 Refills 02/14/25 Time spent arranging discharge: 31-60 minutes ATTESTATION BY PHYSICIAN I have seen and examined the patient. I reviewed the documentation, medical decision making, and treatment plan as noted by the resident provider above. I agree with the findings and plan of care. Reginaldo Marin MD, MANALI MD Feb 14, 2025 21:03
== END 2025-02-14 17:45 | disposition left against medical advice (07) | DRG 311 ==
LOC: EDH 14:51 → EDHIP 16:41 → 3AH 02-14 00:30
PROVIDERS: ADMIT Internal Medicine; ATTEND Internal Medicine
DX: I24.9 Acute ischemic heart disease, unspecified (principal); F03.90 Unspecified dementia, unspecified severity, without behavioral disturbance, psychotic disturbance, mood disturbance, and anxiety; N40.0 Benign prostatic hyperplasia without lower urinary tract symptoms; E88.09 Other disorders of plasma-protein metabolism, not elsewhere classified; R73.9 Hyperglycemia, unspecified; Z53.29 Procedure and treatment not carried out because of patient's decision for other reasons
CPT/HCPCS: 36415; 71045; 71270; 80048; 80053; 80061; 81001; 82550; 82948; 83735; 83880; 84484; 85025; 85378; 93005; 93306; 96374; 99285; G0378; J2470; Q9967

== ENCOUNTER → 2025-06-21 | Outpatient (CLI) | payer OTHER ==
[~2025-06-21] MED LIST: ATOR20TA65 PO; DONE5TAB33 PO; TAMS-55 PO
--- NOTE | 2025-06-24 23:25 | HMCIMG ---
EXAM: Whole body bone scan. INDICATION: Malignant neoplasm of the prostate. REFERENCE EXAMINATION: None TECHNIQUE: 25 mCi of technetium 99m MDP intravenously. Delayed images were acquired approximately 3 hours after tracer administration. FINDINGS: The radiopharmaceutical is seen in the expected biodistribution. Abnormal foci noted in the posterior aspect of the right acetabulum - metastatic. Degenerative uptake in the left knee joint. No other abnormal uptake noted in the entire skeleton. 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
== END | disposition home or self-care (01) ==
LOC: RAH 12:22
PROVIDERS: ATTEND Urology
DX: C79.51 Secondary malignant neoplasm of bone (principal); C61 Malignant neoplasm of prostate; M17.12 Unilateral primary osteoarthritis, left knee
CPT/HCPCS: 78306; A9503